=== PATIENT | male | born 1960 | race Caucasian/White ===

== ENCOUNTER 2022-12-10 10:21 | Outpatient (CLI) | payer OTHER, SELFPAY | END 2022-12-10 10:22 | disposition home or self-care (01) | PROVIDERS: PCP Family Medicine; Visit Provider Family Medicine | DX: Z00.00 Encounter for general adult medical examination without abnormal findings (principal); I10 Essential (primary) hypertension; E78.5 Hyperlipidemia, unspecified | CPT/HCPCS: 80048; 80061 ==

== ENCOUNTER 2024-07-07 09:50 | Outpatient (CLI) | payer MEDICARE, SELFPAY | END 2024-07-07 09:51 | disposition home or self-care (01) | PROVIDERS: PCP Family Medicine; Visit Provider Family Medicine | DX: E78.5 Hyperlipidemia, unspecified (principal); I10 Essential (primary) hypertension; Z12.5 Encounter for screening for malignant neoplasm of prostate | CPT/HCPCS: 80048; 80061; G0103 ==

== ENCOUNTER 2024-07-27 09:50 | Outpatient (CLI) | payer MEDICARE, SELFPAY ==
--- NOTE | 2024-07-27 10:00 | CRLHL7_ITS ---
For Patients: As a result of the Century Cures Act, medical imaging exams and procedure reports are released immediately into your electronic medical record. You may view this report before your referring provider. If you have questions, please contact your health care provider. Indication: THORACIC AORTIC ECTASIA, KNOWN ANEURYSM Technique: Noncontrast CT chest Please note that all CT scans at this facility use dose modulation, iterative reconstruction, and/or weight-based dosing when appropriate to reduce radiation dose to as low as reasonably achievable. Comparison: 09/18/2016 Findings: Visualized thyroid is normal. Incidental pericardial cyst. Calcifications in the coronary arteries. Upper abdomen unremarkable. Bilateral subareolar gynecomastia. No adenopathy. Ectatic descending thoracic aorta is not significantly changed. The ascending aorta measures 4.3 cm. Lungs are clear. No fracture. Impression: Ectatic descending thoracic aorta. Ascending aortic aneurysm measuring 4.3 cm, previously measuring 4.1 cm. Clear lungs. Please note that all CT scans at this facility use dose modulation, iterative reconstruction, and/or weight-based dosing when appropriate to reduce radiation dose to as low as reasonably achievable. Dictated by Frank Baker MD @ 07/27/2024 11:27:54 AM (Electronically Signed)
== END 2024-07-27 09:51 | disposition home or self-care (01) ==
LOC: CT 09:53
PROVIDERS: PCP Family Medicine; Visit Provider Family Medicine
DX: I77.810 Thoracic aortic ectasia (principal); I71.21 Aneurysm of the ascending aorta, without rupture
CPT/HCPCS: 71250